=== PATIENT | female | born 1960 | race Caucasian/White ===

== ENCOUNTER 2019-02-08 08:21 | Day surgery (SDC) | payer MEDICARE, OTHER ==
[~2019-02-08 08:21] MED LIST: Lactated Ringers 1,000 ML IV SCH; Sodium Chloride 0.9% 10 ML Syringe FLUSH PRN
[2019-02-08] MEDS ORDERED: Bupivacaine 0.25%/EPINEPHrine 1:200,000 30 ML SDV ONE (11:06)
[2019-02-08] MEDS ORDERED: Propofol 200 MG/20 ML SDV ONE (11:23)
[2019-02-08] MEDS ORDERED: fentaNYL 100 MCG/2 ML SDV ONE (11:23)
[2019-02-08] MEDS ORDERED: Bupivacaine 0.25%/EPINEPHrine 1:200,000 30 ML SDV INJECT ONE ×2 (12:00)
--- NOTE | 2019-02-08 13:14 | OR ---
PREOPERATIVE DIAGNOSIS: Recurrent right carpal tunnel syndrome. POSTOPERATIVE DIAGNOSIS: Recurrent right carpal tunnel syndrome. PROCEDURE PROPOSED: Right carpal tunnel decompression. PROCEDURE DONE: Right carpal tunnel decompression. CONTROL SYSTEMS TECHNICIAN: Joy Siddiqui. INDICATIONS: This is a 58-year-old female who approximately 16 to 17 years ago had a right carpal tunnel decompression surgery done. She did well until recently. She started developing some recurrent symptoms. She had an EMG study done that was somewhat equivocal, but with her symptoms as they were and being she felt it as very similar to the symptoms prior to her last decompression, I felt we would proceed to do a repeat surgery. TECHNIQUE: The patient brought to the operative suite, placed in the supine position. She was given MAC anesthesia with propofol per APPLICATIONS SYSTEMS ANALYST. Her right hand and forearm were then sterilely prepped and draped. The skin at the base of her palm and deeper tissue was locally anesthetized with 0.25% Marcaine with epinephrine. The arm was then exsanguinated, and the tourniquet inflated to 250 mmHg. A vertical 1 inch palmar incision was then made beginning right at the first flexion crease of the wrist and extending it distally along one of her hand creases. This dissection was carried down through the subcutaneous tissue. The transverse carpal ligament was then encountered and was divided throughout its entirety first with an 11 blade followed by a scissor to get the decompression distally and proximally. The nerve had some adhesions most likely from the previous surgery. These were freed up by sharp dissection with a scissor, and the wound was then irrigated and the skin was then reapproximated with interrupted vertical mattress stitches of 5-0 Ethilon. Sterile dressing was applied with Adaptic and eye pad, followed by a 2 inch Nicholas wrap. A Velcro brace was then put in position, and the tourniquet deflated with a tourniquet time of 11 minutes. She tolerated the procedure well, was taken back to [facility] in good condition. Blood loss was essentially none. SCM: 02/08/2019 12:22:32 MODL: 02/08/2019 12:45:22 /[id number]
== END 2019-02-08 13:30 | disposition home or self-care (01) ==
LOC: VM.SDS 08:21
PROVIDERS: ATTEND Surgery
DX: G56.01 Carpal tunnel syndrome, right upper limb (principal); I25.10 Atherosclerotic heart disease of native coronary artery without angina pectoris; I25.2 Old myocardial infarction; I10 Essential (primary) hypertension; I73.9 Peripheral vascular disease, unspecified; J44.9 Chronic obstructive pulmonary disease, unspecified; G47.33 Obstructive sleep apnea (adult) (pediatric); E78.00 Pure hypercholesterolemia, unspecified; E66.9 Obesity, unspecified; Z68.33 Body mass index [BMI] 33.0-33.9, adult; Z88.5 Allergy status to narcotic agent; Z95.5 Presence of coronary angioplasty implant and graft; Z86.73 Personal history of transient ischemic attack (TIA), and cerebral infarction without residual deficits; Z87.891 Personal history of nicotine dependence; Z79.82 Long term (current) use of aspirin; Z79.899 Other long term (current) drug therapy
CPT/HCPCS: 01810; 64721; J2704; J3010; J7120

== ENCOUNTER 2019-06-22 17:53 | Emergency (ER) | payer MEDICARE, OTHER ==
--- NOTE | 2019-06-22 19:08 | CT ---
[id number] CT/CT Lumbar Spine WO IV EXAM: NONCONTRAST LUMBAR SPINE CT INDICATION: FALL, PAIN L/S SPINE COMPARISON: None. DISCUSSION: Mild convex left curvature centered at L2-L3. The vertebral bodies are otherwise normal in height and alignment. No fracture or suspicious osseous lesion is identified. Mild degenerative disc disease and facet arthropathy throughout the lumbar spine contributing to mild scattered central and foraminal stenosis. Atherosclerotic plaque. Calcified left lower lobe granuloma. Cholecystectomy. IMPRESSION: 1. No acute findings. Job Whitaker MD 06/22/19 [id number] Thank you for allowing us to participate in the care of your patient.
--- NOTE | 2019-06-22 19:09 | EDM.PDOC ---
ED HPI GENERAL MEDICAL PROBLEM - General Chief Complaint: Back Pain or Injury Stated Complaint: FELL OUTSIDE Time Seen by Provider: 06/22/19 18:05 - History of Present Illness INITIAL COMMENTS - FREE TEXT/NARRATIVE: Pt presents s/p fall on ice, landed on bottom, fell back hitting the back of her head. No loc, no c/o pain in the back of the head. Lower Back Pain Score (Numeric/FACES): 10 - Related Data Allergies Allergy/AdvReac Type Severity Reaction Status Date / Time oxycodone [From Percocet] Allergy Rash Verified 06/22/19 18:11 Home Meds: Home Meds Topiramate 25 mg PO ASDIRECTED 03/31/18 [History] Acetaminophen [Tylenol Extra Strength] 500 mg PO Q6H PRN 02/06/19 [History] Aspirin 81 mg PO DAILY 02/06/19 [History] amLODIPine [Norvasc] 5 mg PO DAILY 02/06/19 [History] Citalopram [Citalopram HBr] 30 mg PO DAILY 06/22/19 [History] Metoprolol Tartrate 12.5 mg BID 06/22/19 [History] Past Medical History HEENT History: Reports: Other (See Below) 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 Cardiovascular History: Reports: Hypertension, [place] Neurological History: Reports: Migraines Psychiatric History: Reports: Depression - Past Surgical History Cardiovascular Surgical History: Reports: Coronary Artery Bypass, Coronary Artery Stent GI Surgical History: Reports: Cholecystectomy Female Surgical History: Reports: Hysterectomy Musculoskeletal Surgical History: Reports: Carpal Tunnel, Other (See Below) Other Musculoskeletal Surgeries/Procedures:: foot surgery Social & Family History - Tobacco Use Smoking Status *Q: Never Smoker - Caffeine Use Caffeine Use: Reports: Coffee - Recreational Drug Use Recreational Drug Use: No ED ROS GENERAL - Review of Systems Review Of Systems: See Below Constitutional: Reports: No Symptoms HEENT: Reports: No Symptoms Respiratory: Reports: No Symptoms Cardiovascular: Reports: No Symptoms Endocrine: Reports: No Symptoms GI/Abdominal: Reports: No Symptoms : Reports: No Symptoms Musculoskeletal: Reports: Other (pain lumbosacral area. ) Skin: Reports: No Symptoms Neurological: Reports: No Symptoms ED EXAM,LOWER BACK PAIN/INJURY - Physical Exam Exam: See Below Text/Narrative:: Ct notes no acute fracture. Exam Limited By: No Limitations General Appearance: Alert, WD/WN, No Apparent Distress Ears: Normal External Exam Nose: Normal Inspection Throat/Mouth: Normal Inspection Head: Atraumatic, Normocephalic Neck: Normal Inspection, Supple Respiratory/Chest: No Respiratory Distress, Lungs Clear, Normal Breath Sounds, No Accessory Muscle Use, Chest Non-Tender Cardiovascular: Normal Peripheral Pulses Back Exam: Other (pain to lumbosacral area) Extremities: Normal Inspection Neurological: Alert, Normal Mood/Affect Course - Vital Signs Last Recorded V/S: Last Vital Signs Temp 36.2 C 06/22/19 17:53 Pulse 56 L 06/22/19 17:53 Resp 16 06/22/19 17:53 BP 137/67 06/22/19 17:53 Pulse Ox 99 06/22/19 17:53 Departure - Departure Time of Disposition: 19:12 Disposition: Home, Self-Care 01 Condition: Good Clinical Impression: Musculoskeletal pain - Discharge Information Instructions: Musculoskeletal Pain Referrals: Agapito Peacock PA-C [Primary Care Provider] - Forms: ED Department Discharge Care Plan Goals: follow up with pcp for continued care
== END 2019-06-22 19:20 | disposition home or self-care (01) ==
LOC: VM.ED 17:53
DX: M54.5 Low back pain (principal); I10 Essential (primary) hypertension; F32.9 Major depressive disorder, single episode, unspecified; I25.2 Old myocardial infarction; Z79.899 Other long term (current) drug therapy; Z88.6 Allergy status to analgesic agent; W00.0XXA Fall on same level due to ice and snow, initial encounter
CPT/HCPCS: 72131; 99283-25; 99283-GF

== ENCOUNTER 2022-08-16 09:44 | Emergency (ER) | payer OTHER, MEDICARE | END 2022-08-16 11:52 | disposition home or self-care (01) | LOC: VM.ED 09:44 | DX: S89.92XA Unspecified injury of left lower leg, initial encounter (principal); I10 Essential (primary) hypertension; I25.2 Old myocardial infarction; Z79.82 Long term (current) use of aspirin; Z79.899 Other long term (current) drug therapy; W00.0XXA Fall on same level due to ice and snow, initial encounter | CPT/HCPCS: 73562-LT; 73590-LT; 99283 ==

== ENCOUNTER 2022-08-21 12:10 | Emergency (ER) | payer MEDICARE, OTHER ==
[2022-08-21] MEDS ORDERED: Take Home: Acetaminophen/HYDROcodone 325-5 MG, 5 Tab Pack PO ONE (13:07)
== END 2022-08-21 13:20 | disposition home or self-care (01) ==
LOC: VM.ED 12:10
DX: S22.42XA Multiple fractures of ribs, left side, initial encounter for closed fracture (principal); I25.709 Atherosclerosis of coronary artery bypass graft(s), unspecified, with unspecified angina pectoris; I10 Essential (primary) hypertension; I25.2 Old myocardial infarction; J44.9 Chronic obstructive pulmonary disease, unspecified; Z79.899 Other long term (current) drug therapy; Z79.82 Long term (current) use of aspirin; Z88.5 Allergy status to narcotic agent; W18.30XA Fall on same level, unspecified, initial encounter
CPT/HCPCS: 71101-LT; 99283; A9270-GY

== ENCOUNTER 2023-06-09 14:26 | Emergency (ER) | payer MEDICARE, OTHER ==
[2023-06-09 15:13] LABS: BASOPHILS PERCENT AUTO 0.4 % (0.2-1.2); EOSINOPHILS ABSOLUTE AUTO 0.1 x10^3/uL (0.0-0.5); EOSINOPHILS PERCENT AUTO 1.7 % (0.0-4.0); HEMATOCRIT 40.8 % (33.0-47.0); HEMOGLOBIN 14.2 g/dL (12.0-16.0); LYMPHOCYTES ABSOLUTE AUTO 1.8 x10^3/uL (1.0-4.8); LYMPHOCYTES PERCENT AUTO 34.5 % (25.0-50.0); MEAN CORPUSCULAR HEMOGLOBIN 33.1 pg (26.0-32.0); MEAN CORPUSCULAR HGB CONC 34.8 g/dL (32.0-36.0); MEAN CORPUSCULAR VOLUME 95.1 fL (78.0-93.0); MONOCYTES ABSOLUTE AUTO 0.4 x10^3/uL (0.0-0.8); MONOCYTES PERCENT AUTO 8.2 % (2.0-11.0); NEUTROPHILS ABSOLUTE AUTO 2.9 x10^3/uL (1.8-7.7); NEUTROPHILS PERCENT AUTO 55.2 % (50.0-80.0); PLATELET COUNT,PLT 174 x10^3/uL (130-400); RED BLOOD CELL COUNT 4.29 x10^6/uL (4.00-5.50); WHITE BLOOD CELL COUNT,WBC 5.3 x10^3/uL (4.0-10.0)
[2023-06-09 15:29] LABS: A/G RATIO 1.34; ALANINE AMINOTRANSFERASE,ALT 15 U/L (14-59); ALBUMIN 3.9 g/dL (3.4-5.0); ALKALINE PHOSPHATASE 61 U/L (46-116); ASPARTATE AMNIOTRANSFERASE,AST 13 U/L (15-37); BILIRUBIN TOTAL 0.2 mg/dL (0.2-1.0); BLOOD UREA NITROGEN,BUN 17 mg/dL (7-18); CARBON DIOXIDE,CO2 22 mmol/L (21-32); CHLORIDE,CL 107 mmol/L (98-107); CREATINE KINASE,CK 104 U/L (26-192); CREATININE 0.7 mg/dL (0.55-1.02); GLUCOSE RANDOM 95 mg/dL (70-99); POTASSIUM,K 3.2 mmol/L (3.5-5.1); PROTEIN TOTAL,TP 6.8 g/dL (6.4-8.2); SODIUM,NA 144 mmol/L (136-145)
[2023-06-09 15:30] LABS: ANION GAP 18.2 mmol/L (5-15); C-REACTIVE PROTEIN < 0.50 mg/dL (<=0.50); ESTIMATED GFR 97 mL/min (>=60)
== END 2023-06-09 16:55 | disposition home or self-care (01) ==
LOC: VM.ED 14:26
DX: R07.89 Other chest pain (principal); I10 Essential (primary) hypertension; I25.10 Atherosclerotic heart disease of native coronary artery without angina pectoris; I25.2 Old myocardial infarction; J44.9 Chronic obstructive pulmonary disease, unspecified; Z95.1 Presence of aortocoronary bypass graft; Z87.891 Personal history of nicotine dependence; Z79.82 Long term (current) use of aspirin; Z79.899 Other long term (current) drug therapy; Z88.5 Allergy status to narcotic agent
CPT/HCPCS: 36415; 71046; 80053; 82550; 84484; 85025; 86140; 99284; 99285

== ENCOUNTER 2023-10-11 17:38 | Emergency (ER) | payer MEDICARE, OTHER ==
[2023-10-11] MEDS ORDERED: Sodium Chloride 0.9% 10 ML Syringe FLUSH PRN (18:04)
[2023-10-11 18:22] LABS: BASOPHILS PERCENT AUTO 0.1 % (0.2-1.2); EOSINOPHILS ABSOLUTE AUTO 0.2 x10^3/uL (0.0-0.5); EOSINOPHILS PERCENT AUTO 1.5 % (0.0-4.0); HEMOGLOBIN 13.9 g/dL (12.0-16.0); IMMATURE GRAN ABSOLUTE AUTO 0.03 x10^3/uL (0.00-0.07); LYMPHOCYTES PERCENT AUTO 19.7 % (25.0-50.0); MEAN CORPUSCULAR HEMOGLOBIN 34.6 pg (26.0-32.0); MEAN CORPUSCULAR HGB CONC 35.6 g/dL (32.0-36.0); MONOCYTES ABSOLUTE AUTO 0.9 x10^3/uL (0.0-0.8); MONOCYTES PERCENT AUTO 8.6 % (2.0-11.0); NEUTROPHILS ABSOLUTE AUTO 7.2 x10^3/uL (1.8-7.7); NEUTROPHILS PERCENT AUTO 69.8 % (50.0-80.0); PLATELET COUNT,PLT 147 x10^3/uL (130-400); RED BLOOD CELL COUNT 4.02 x10^6/uL (4.00-5.50); WHITE BLOOD CELL COUNT,WBC 10.3 x10^3/uL (4.0-10.0)
[2023-10-11 18:38] LABS: PROTHROMBIN TIME 9.9 SEC (8.9-11.5)
[2023-10-11 18:48] LABS: A/G RATIO 1.25; ALBUMIN 3.5 g/dL (3.4-5.0); BILIRUBIN TOTAL 0.2 mg/dL (0.2-1.0); CALCIUM 8.5 mg/dL (8.5-10.1); CREATININE 0.9 mg/dL (0.55-1.02); EST CRCL DRUG DOSING (CG) 59.12 mL/min; POTASSIUM,K 3.9 mmol/L (3.5-5.1); PROTEIN TOTAL,TP 6.3 g/dL (6.4-8.2)
[2023-10-11 18:57] LABS: ANION GAP 16.9 mmol/L (5-15)
== END 2023-10-11 19:47 | disposition home or self-care (01) ==
LOC: VM.ED 17:38
DX: R07.89 Other chest pain (principal); I10 Essential (primary) hypertension; I25.10 Atherosclerotic heart disease of native coronary artery without angina pectoris; I25.2 Old myocardial infarction; J44.9 Chronic obstructive pulmonary disease, unspecified; Z88.8 Allergy status to other drugs, medicaments and biological substances; Z79.82 Long term (current) use of aspirin; Z79.899 Other long term (current) drug therapy; Z90.49 Acquired absence of other specified parts of digestive tract; Z90.710 Acquired absence of both cervix and uterus
CPT/HCPCS: 36415; 71045; 80053; 84484; 85025; 85610; 93005; 99285

== ENCOUNTER 2024-02-22 11:14 | Emergency (ER) | payer MEDICARE, OTHER ==
[2024-02-22] MEDS: Sodium Chloride 0.9% 10 ML Syringe FLUSH PRN (11:30)
[2024-02-22 11:47] LABS: BASOPHILS PERCENT AUTO 0.4 % (0.2-1.2); EOSINOPHILS ABSOLUTE AUTO 0.1 x10^3/uL (0.0-0.5); EOSINOPHILS PERCENT AUTO 1.9 % (0.0-4.0); HEMATOCRIT 41.3 % (33.0-47.0); HEMOGLOBIN 14.2 g/dL (12.0-16.0); LYMPHOCYTES ABSOLUTE AUTO 1.2 x10^3/uL (1.0-4.8); LYMPHOCYTES PERCENT AUTO 25.1 % (25.0-50.0); MEAN CORPUSCULAR HEMOGLOBIN 32.7 pg (26.0-32.0); MEAN CORPUSCULAR HGB CONC 34.4 g/dL (32.0-36.0); MEAN CORPUSCULAR VOLUME 95.2 fL (78.0-93.0); MONOCYTES ABSOLUTE AUTO 0.4 x10^3/uL (0.0-0.8); MONOCYTES PERCENT AUTO 7.8 % (2.0-11.0); NEUTROPHILS ABSOLUTE AUTO 3.1 x10^3/uL (1.8-7.7); NEUTROPHILS PERCENT AUTO 64.8 % (50.0-80.0); PLATELET COUNT,PLT 135 x10^3/uL (130-400); RED BLOOD CELL COUNT 4.34 x10^6/uL (4.00-5.50); WHITE BLOOD CELL COUNT,WBC 4.8 x10^3/uL (4.0-10.0)
[2024-02-22 12:08] LABS: PROTHROMBIN TIME 9.9 SEC (8.9-11.5); PTT,PARTIAL THROMBOPLSTIN TIME 25.5 SEC (21.9-33.8)
[2024-02-22 12:12] LABS: A/G RATIO 1.52; ALANINE AMINOTRANSFERASE,ALT 13 U/L (14-59); ALBUMIN 4.1 g/dL (3.4-5.0); ALKALINE PHOSPHATASE 66 U/L (46-116); ASPARTATE AMNIOTRANSFERASE,AST 10 U/L (15-37); BILIRUBIN TOTAL 0.3 mg/dL (0.2-1.0); BLOOD UREA NITROGEN,BUN 14 mg/dL (7-18); CALCIUM 9.2 mg/dL (8.5-10.1); CARBON DIOXIDE,CO2 24 mmol/L (21-32); CHLORIDE,CL 107 mmol/L (98-107); CREATININE 0.9 mg/dL (0.55-1.02); GLUCOSE RANDOM 127 mg/dL (70-99); MAGNESIUM 1.9 mg/dL (1.8-2.4); POTASSIUM,K 3.9 mmol/L (3.5-5.1); PROTEIN TOTAL,TP 6.8 g/dL (6.4-8.2); SODIUM,NA 144 mmol/L (136-145)
[2024-02-22 12:14] LABS: ANION GAP 16.9 mmol/L (5-15); ESTIMATED GFR 71 mL/min (>=60)
== END 2024-02-22 13:25 | disposition home or self-care (01) ==
LOC: VM.ED 11:14
DX: R00.2 Palpitations (principal); R07.9 Chest pain, unspecified; I25.2 Old myocardial infarction; I25.119 Atherosclerotic heart disease of native coronary artery with unspecified angina pectoris; J44.9 Chronic obstructive pulmonary disease, unspecified; Z95.1 Presence of aortocoronary bypass graft; Z95.5 Presence of coronary angioplasty implant and graft; Z79.82 Long term (current) use of aspirin; Z79.899 Other long term (current) drug therapy; Z88.5 Allergy status to narcotic agent
CPT/HCPCS: 36415; 71045; 80053; 83735; 84484; 85025; 85610; 85730; 93005; 99285; J3490

== ENCOUNTER 2024-05-15 13:29 | Emergency (ER) | payer MEDICARE, OTHER ==
[2024-05-15] MEDS ORDERED: Sodium Chloride 0.9% 10 ML Syringe FLUSH PRN (13:50)
[2024-05-15 14:10] LABS: BASOPHILS PERCENT AUTO 0.4 % (0.2-1.2); EOSINOPHILS ABSOLUTE AUTO 0.1 x10^3/uL (0.0-0.5); HEMATOCRIT 39.4 % (33.0-47.0); HEMOGLOBIN 13.7 g/dL (12.0-16.0); IMMATURE GRAN ABSOLUTE AUTO 0.01 x10^3/uL (0.00-0.07); LYMPHOCYTES ABSOLUTE AUTO 1.3 x10^3/uL (1.0-4.8); LYMPHOCYTES PERCENT AUTO 24.8 % (25.0-50.0); MEAN CORPUSCULAR HEMOGLOBIN 33.6 pg (26.0-32.0); MEAN CORPUSCULAR HGB CONC 34.8 g/dL (32.0-36.0); MEAN CORPUSCULAR VOLUME 96.6 fL (78.0-93.0); MONOCYTES ABSOLUTE AUTO 0.5 x10^3/uL (0.0-0.8); MONOCYTES PERCENT AUTO 9.2 % (2.0-11.0); NEUTROPHILS ABSOLUTE AUTO 3.4 x10^3/uL (1.8-7.7); NEUTROPHILS PERCENT AUTO 64.4 % (50.0-80.0); PLATELET COUNT,PLT 152 x10^3/uL (130-400); RED BLOOD CELL COUNT 4.08 x10^6/uL (4.00-5.50); WHITE BLOOD CELL COUNT,WBC 5.2 x10^3/uL (4.0-10.0)
[2024-05-15 14:29] LABS: A/G RATIO 1.37; ALANINE AMINOTRANSFERASE,ALT 11 U/L (14-59); ALBUMIN 3.7 g/dL (3.4-5.0); ALKALINE PHOSPHATASE 61 U/L (46-116); ANION GAP 14.2 mmol/L (5-15); ASPARTATE AMNIOTRANSFERASE,AST 12 U/L (15-37); BILIRUBIN TOTAL 0.3 mg/dL (0.2-1.0); BLOOD UREA NITROGEN,BUN 19 mg/dL (7-18); CARBON DIOXIDE,CO2 25 mmol/L (21-32); CHLORIDE,CL 109 mmol/L (98-107); ESTIMATED GFR 63 mL/min (>=60); GLUCOSE RANDOM 97 mg/dL (70-99); POTASSIUM,K 4.2 mmol/L (3.5-5.1); PROTEIN TOTAL,TP 6.4 g/dL (6.4-8.2); SODIUM,NA 144 mmol/L (136-145)
== END 2024-05-15 15:14 | disposition home or self-care (01) ==
LOC: VM.ED 13:29
DX: R51.9 Headache, unspecified (principal); G89.29 Other chronic pain; I25.10 Atherosclerotic heart disease of native coronary artery without angina pectoris; I25.2 Old myocardial infarction; I10 Essential (primary) hypertension; J44.9 Chronic obstructive pulmonary disease, unspecified; Z95.5 Presence of coronary angioplasty implant and graft; Z90.49 Acquired absence of other specified parts of digestive tract; Z90.710 Acquired absence of both cervix and uterus; Z88.5 Allergy status to narcotic agent; Z79.82 Long term (current) use of aspirin; Z79.1 Long term (current) use of non-steroidal anti-inflammatories (NSAID); Z79.899 Other long term (current) drug therapy
CPT/HCPCS: 36415; 70450; 80053; 85025; 93010; 99284